=== PATIENT | female | born 1970 | race Caucasian/White ===

== ENCOUNTER 2018-01-06 19:28 | Emergency (ER) | payer OTHER ==
[~2018-01-06] VITALS: Ht 152.4 cm; Wt 75.7 kg
[2018-01-06 19:46] VITALS: Ht 152.4 cm; Wt 75.7 kg
[2018-01-06 22:47] VITALS: BP 138/84
== END 2018-01-06 22:47 | disposition home or self-care (01) ==
LOC: ED 19:28
DX: N39.0 Urinary tract infection, site not specified (principal)
CPT/HCPCS: J0696

== ENCOUNTER 2018-01-15 19:27 | Emergency (ER) | payer OTHER ==
[~2018-01-15] VITALS: Ht 152.4 cm; Wt 65.3 kg
[2018-01-15 19:44] VITALS: Ht 152.4 cm; Wt 65.3 kg
[2018-01-15 20:59] LABS: microscopic required? YES; urine erythrocyte 1+ (NEGATIVE)
[2018-01-16 01:14] VITALS: BP 115/75
== END 2018-01-16 01:14 | disposition home or self-care (01) ==
LOC: ED 19:27
PROVIDERS: Emergency Medicine
DX: N76.0 Acute vaginitis (principal)
CPT/HCPCS: 87491; 87591; J1580; Q0162

== ENCOUNTER 2018-08-20 07:33 | Day surgery (SDC) | payer OTHER ==
[~2018-08-20] VITALS: Ht 152.4 cm; Wt 76.2 kg
[2018-08-20 08:17] VITALS: BP 120/70
[2018-08-20 14:45] VITALS: BP 117/68
== END 2018-08-20 12:50 | disposition home or self-care (01) ==
LOC: GI 07:33 → OR 11:30 → GI 11:30
PROVIDERS: Internal Medicine Gastroenterology
PROC: 0DBN8ZZ Excision of Sigmoid Colon, Via Natural or Artificial Opening Endoscopic (ICD-10-PCS; principal; 2018-08-20 11:30)
DX: K57.90 Diverticulosis of intestine, part unspecified, without perforation or abscess without bleeding (principal); K63.5 Polyp of colon; Z68.33 Body mass index [BMI] 33.0-33.9, adult
CPT/HCPCS: 45378; J1200; J1610; J2250; J2310; J3010; J3490

== ENCOUNTER 2020-04-24 19:10 | Emergency (ER) | payer OTHER, SELFPAY ==
[~2020-04-24] VITALS: Ht 152.4 cm; Wt 64.0 kg
[2020-04-24 19:53] VITALS: Ht 152.4 cm; Wt 64.0 kg
[2020-04-24 22:28] LABS: BASOPHIL % 0.4 % (0-2); PLATELET COUNT 218 x10^3mcL (130-400)
[2020-04-24 22:38] LABS: CALCIUM 8.9 mg/dL (8.5-10.1); CARBON DIOXIDE 25.6 mmol/L (21-32); CHLORIDE SERUM 102 mmol/L (98-107); CREATININE SERUM 0.6 mg/dL (0.6-1.0); GFR1 > 60 mL/min; GLUCOSE SERUM 108 mg/dL (74-106); POTASSIUM SERUM 3.5 mmol/L (3.5-5.1); SODIUM SERUM 139 mmol/L (136-145)
[2020-04-24 22:43] LABS: ALBUMIN 4.2 g/dL (3.4-5.0); ALKALINE PHOSPHATASE 95 U/L (46-116); ALT/SGPT 98 U/L (14-59); AST/SGOT 49 U/L (15-37); BILIRUBIN TOTAL 0.29 mg/dL (0.20-1.00); C REACTIVE PROTEIN 2.9 mg/dL (<=0.9); LACTIC DEHYDROGENASE (LDH) 272 U/L (100-190); TOTAL PROTEIN, SERUM 8.6 g/dL (6.4-8.2)
[2020-04-25 00:08] LABS: UA SPECIFIC GRAVITY >=1.030 (1.005-1.035); microscopic required? YES; urine erythrocyte 2+ (NEGATIVE)
[2020-04-25 00:10] VITALS: BP 119/63
== END 2020-04-25 00:10 | disposition home or self-care (01) ==
LOC: ED 19:10
PROVIDERS: Specialist
DX: U07.1 COVID-19 (principal); Z98.890 Other specified postprocedural states
CPT/HCPCS: 36600; 83880; 85378; 87804; J7030; Q0092; U0003-CS